=== PATIENT | female | born 1975 | race Caucasian/White ===

== ENCOUNTER 2019-09-10 14:35 | Outpatient (CLI) | payer OTHER, SELFPAY ==
--- NOTE | ~2019-09-10 | MM_ITS ---
EXAMINATION: MM screening [facility] BI w rekha HISTORY: Screening mammogram TECHNIQUE: Craniocaudal and mediolateral oblique 3-D tomosynthesis images were obtained and synthetic 2-D images were generated. CAD analysis was submitted and interpreted. COMPARISON: None, baseline BREAST PARENCHYMAL COMPOSITION: The breasts are heterogeneously dense, which may obscure small masses . FINDINGS: RIGHT BREAST: There is no evidence of suspicious mass, calcification, or architectural distortion to suggest malignancy. LEFT BREAST: There is a mass in the posterior third of the upper outer breast best appreciated 6.1 cm from the nipple on mediolateral oblique tomosynthesis image 12/59. In addition, there is an asymmetr y in the upper outer quadrant of the breast 6 cm from the nipple on mediolateral oblique tomosynthesi s image 20/59. IMPRESSION: 1. Findings in the upper outer quadrant of the left breast which may reflect intramammary lymph nodes . 2. Additional mammographic views and possible breast ultrasound are recommended to evaluate for malig jarod and establish a baseline given that this is the first mammographic examination. BI-RADS Category 0: Incomplete: Needs additional imaging evaluation. Reviewed, dictated and finalized at location A. 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 Findings in the upper outer quadrant of the left breast which may reflect in tramammary lymph nodes. 2. Additional mammographic views and possible breast ultrasound are recommended to evaluate for malignancy and establish a baseline given that this is the fir st mammographic examination. BI-RADS Category 0: Incomplete: Needs additional imaging evaluation.
== END 2019-09-10 14:36 | disposition home or self-care (01) ==
PROVIDERS: PCP Family Medicine; Visit Provider Family Medicine
DX: Z12.31 Encounter for screening mammogram for malignant neoplasm of breast (principal)
CPT/HCPCS: 77063; 77067

== ENCOUNTER 2020-07-15 11:29 | Outpatient (NON) | payer OTHER, SELFPAY ==
[2020-07-15 23:21] LABS: SARS-CoV-2 RNA PCR Positive
== END 2020-07-15 11:30 ==
PROVIDERS: Visit Provider Family Medicine
DX: U07.1 COVID-19 (principal); B34.9 Viral infection, unspecified
CPT/HCPCS: 87635; C9803; U0003

== ENCOUNTER 2020-07-20 15:17 | Emergency (ER) | payer OTHER, SELFPAY ==
--- NOTE | ~2020-07-20 | XR_ITS ---
XR chest 1V portable DATE: 07/20/2020 16:09 INDICATION: Covid-positive for 4 to 5 days TECHNIQUE: Portable upright AP chest on 07/20/2020 at 1555 hours COMPARISON: None FINDINGS: Normal heart size. No hilar or mediastinal enlargement. No pulmonary infiltrate or consolid ation, pleural effusion or pulmonary vascular congestion or pneumothorax. IMPRESSION: No active cardiopulmonary disease Reviewed, dictated and finalized at location B. AL WORK PROFESSOR
--- NOTE | ~2020-07-20 | CT_ITS ---
EXAMINATION: CTA chest PE protocol EXAM DATE: 07/20/2020 19:08 INDICATION: Shortness of breath. COVID 19 positive. TECHNIQUE: Spiral CTA of the chest (pulmonary arteries) was performed with 100 cc Omnipaque 350 intr avenous contrast injection. Images were acquired during the pulmonary arterial phase. Coronal maxi mum intensity projection 3D-reconstructions were created by the technologist on dedicated workstation . Axial, coronal and sagittal reformatted images were reviewed. The dose-length product (DLP) for t his examination was 153.39 mGy-cm. The exposure was tailored according to patient size (auto mA exp osure control), and iterative reconstruction (ASIR) was used as additional dose reduction technique. There is no prior study for comparison. FINDINGS: Pulmonary arteries are well opacified and without intraluminal filling defects. No thora cic aortic dissection. There are several small regions of peripheral groundglass opacity within the lungs bilaterally. Distribution and appearance is consistent with COVID-19 pneumonia. There is more c onfluent oblong opacity in the left upper lobe medially measuring 1.1 x 2.9 cm probably atelectasis b ut a follow-up CT is recommended in 1 month to exclude possibility of cancer. Small amount of depende nt atelectasis. There are no pleural or pericardial effusions. Tracheobronchial tree is patent. There is no mediastinal, hilar or axillary lymphadenopathy. There is no pneumothorax. Heart chichi l in size. No evidence of coronary arterial calcification. Upper abdomen is unremarkable. The raymond warren are unremarkable. IMPRESSION: 1. Several small peripheral groundglass opacities in both lungs consistent with COVID pneumonia. 2. Surrency paramedial left upper lobe opacity probably atelectasis but follow-up CT recommended in 1 month to exclude chronic process such as cancer. 3. No pulmonary emboli. Reviewed, dictated and finalized at location A. MAKER IMPRESSION: 1. Several small peripheral groundglass opacities in both lungs consistent wit h COVID pneumonia. 2. Surrency paramedial left upper lobe opacity probably atelectasis but follow-u p CT recommended in 1 month to exclude chronic process such as cancer. 3. No pulmonary emboli.
--- NOTE | 2020-07-20 15:31 | ECG_ITS ---
Measurements Intervals [place] Rate: 77 P: 62 CA: 121 QRS: 50 QRSD: 89 T: 62 QT: 361 QTc: 409 Interpretive Statements SINUS RHYTHM INCOMPLETE RIGHT BUNDLE BRANCH BLOCK LOW QRS VOLTAGE IN PRECORDIAL LEADS ST ELEVATION IN ANT/INF LEADS- PROBABLY EARLY REPOLARIZATION BASELINE WANDER- I, II, AVR, AVL, AVF, V1-V3 BORDERLINE ECG Electronically Signed On 07-20-2020 17:41:13 ATOMIZER ASSEMBLER by Rex Lomax D.O.
[2020-07-20 15:32] VITALS: BP 136/93; PULSE 83; RESP 22; TEMP 36.6; O2SAT 100
--- NOTE | 2020-07-20 15:55 | ED.SOB ---
HPI - SOB/Dyspnea General Chief Complaint: Shortness of Breath/Dyspnea Stated Complaint: covid postive/sob Time Seen by Provider: 07/20/20 15:42 Source: patient, RN notes reviewed and old records reviewed Limitations: no limitations History of Present Illness HPI Narrative: 45-year-old female presents to emergency department for shortness of breath for over 1 week, progressively worsening. Patient was diagnosed with COVID-19 recently. She states she has been feeling bad since last Saturday. She reports fatigue/weakness, a runny/congested nose, and shortness of breath. She states her shortness of breath has worsened recently. She also lost her sense of taste and smell over the weekend. Related Data Allergies Allergy/AdvReac Type Severity Reaction Status Date / Time No Known Allergies Allergy Verified 07/20/20 18:44 Review of Systems Review of Systems: Narrative: CONSTITUTIONAL: Denies fever, chills, or sweats. EYES: Denies visual changes, redness, or discharge. ENT: Denies rhinorrhea, congestion, sore throat, or otalgia. CARDIOVASCULAR: Denies chest pain, palpitations, or edema. RESPIRATORY: Denies cough or dyspnea. GASTROINTESTINAL: Denies abdominal pain, nausea, vomiting, or diarrhea. GENITOURINARY: Denies dysuria or hematuria. SKIN: Denies rash or itching. MUSCULOSKELETAL: Denies back pain, joint pain, or myalgia. NEUROLOGIC: Denies headache, numbness, dizziness, or weakness. PSYCHIATRIC: Denies anxiety or depression. All systems reviewed & are unremarkable except as noted in HPI and below (ROS) PMFSH Social History Social History Gender identity (if verbalized by the patient): Female Exam Narrative: Exam Narrative: GENERAL: Well-appearing, well-nourished, and in no acute distress. HEAD: Normocephalic, atraumatic. EYES: PERRLA and EOMI. ENT: Nares clear, no rhinorrhea or epistaxis. Mucous membranes moist. NECK: Supple. CHEST: Clear to auscultation. No respiratory distress. HEART: Regular rate and rhythm. No murmur heard. Normal peripheral pulses. ABDOMEN: Soft, nontender, nondistended, normal active bowel sounds. EXTREMITIES: Normal range of motion. No edema. SKIN: Warm, dry, no rash. NEURO: No focal deficits. Alert and oriented x3. PSYCH: Normal mood and affect. Course Reevaluation(s) Reevaluation #1: 1999 -reevaluated patient no new complaints. CT scan showed no pulmonary embolism. Patient has stable vitals, 100% oxygen on room air. Counseled patient to return to emergency department if she notices increased shortness of breath difficulty breathing, or other concerns. Counseled patient to follow-up with her medical provider within 1 week Vital Signs Vital signs: Vital Signs Temperature 36.6 C 07/20/20 15:32 Pulse Rate 83 07/20/20 15:32 Respiratory Rate 22 H 07/20/20 15:32 Blood Pressure 136/93 H 07/20/20 15:32 Pulse Oximetry 100 07/20/20 15:32 Temperature 36.7 C 07/20/20 20:15 Pulse Rate 79 07/20/20 20:15 Respiratory Rate 16 07/20/20 20:15 Blood Pressure 128/86 07/20/20 20:15 Pulse Oximetry 100 07/20/20 20:15 MDM - SOB/Dyspnea Medical Records Attestation: I reviewed the patient's medical records. Lab Data Attestation: I reviewed the patient's lab results. Result diagrams: 07/20/20 15:53 07/20/20 15:53 Labs: Lab Results 07/20/20 07/20/20 Range/Units 15:53 15:53 WBC 6.1 (4.5-10.0) K/mm3 RBC 4.12 L (4.2-5.4) M/mm3 Hgb 14.5 (12.0-15.0) g/dL Hct 40.0 (37.0-47.0) % MCV 97.1 (80-100) fl MCH 35.2 H (26-34) pg MCHC 36.3 H (32-36) g/dl RDW 11.0 L (11.5-14.5) % Plt Count 246 (150-375) k/mm3 MPV 9.3 (7.4-10.4) fl Immature Gran % (Auto) 0.2 (0-0.5) % Neut % (Auto) 49.1 (45.5-73.1) % Lymph % (Auto) 38.7 (18.3-44.2) % [place] % (Auto) 10.6 H (2.6-8.5) % Eos % (Auto) 0.7 (0-4.4) % Baso % (Auto) 0.7 (0.2-1.2) % Lymph # (Auto
[2020-07-20 15:59] LABS: Basophils Percent Auto 0.7 % (0.2-1.2); Eosinophils Percent Auto 0.7 % (0-4.4); Hemoglobin 14.5 g/dL (12.0-15.0); Immature Granulocyte Absolute 0.01 K/mm3 (0.00-0.031); Immature Granulocyte Percent A 0.2 % (0-0.5); Lymphocytes Absolute Auto 2.37 K/mm3 (0.9-3.2); Lymphocytes Percent Auto 38.7 % (18.3-44.2); Mean Corpuscular HGB Conc 36.3 g/dl (32-36); Mean Corpuscular Hemoglobin 35.2 pg (26-34); Mean Corpuscular Volume 97.1 fl (80-100); Mean Platelet Volume 9.3 fl (7.4-10.4); Monocytes Absolute Auto 0.7 K/mm3 (0.1-0.6); Monocytes Percent Auto 10.6 % (2.6-8.5); Neutrophils Percent Auto 49.1 % (45.5-73.1); Platelet Count Result 246 k/mm3 (150-375); Red Blood Count 4.12 M/mm3 (4.2-5.4); White Blood Count 6.1 K/mm3 (4.5-10.0)
[2020-07-20] MEDS: ALBUTEROL SULFATE (*SP) AEROSOL 1 PUFF 4 PUFF INHALATION (16:07)
[2020-07-20 16:11] LABS: Anion Gap 8 mmol/L (8-16); Blood Urea Nitrogen 10 mg/dL (7-17); Calcium 9.3 mg/dL (8.4-10.2); Carbon Dioxide 25 mmol/L (22-30); Chloride 103 mmol/L (98-107); Estimated CRCL calculation 84 ml/min; Estimated Glomerular Filt Rate > 60; Glucose 91 mg/dL (65-105); Potassium 3.7 mmol/L (3.4-5.0); Sodium 136 mmol/L (137-145)
[2020-07-20 16:30] VITALS: PULSE 72
[2020-07-20] MEDS: KETOROLAC 15 MG/ML VIAL (*BKC) IV PUSH ×2 (16:35→18:53)
[2020-07-20 19:48] VITALS: BP 144/97; PULSE 74; RESP 16; O2SAT 100
[2020-07-20 20:15] VITALS: BP 128/86; PULSE 79; RESP 16; TEMP 36.7; O2SAT 100
== END 2020-07-20 20:16 | disposition home or self-care (01) ==
PROVIDERS: Emergency Medicine; Emergency Provider Emergency Medicine; PCP Family Medicine
DX: U07.1 COVID-19 (principal); J12.89 Other viral pneumonia
CPT/HCPCS: 36415; 71045; 71275; 80048; 85025; 93005; 96374; 96376; 99284; A9270; J1885; Q9967

== ENCOUNTER 2021-05-30 04:57 | Emergency (ER) | payer OTHER, SELFPAY ==
--- NOTE | ~2021-05-30 | XR_ITS ---
EXAMINATION: XR shoulder LT min 2V INDICATION: Left shoulder pain TECHNIQUE: Four views of the left shoulder are submitted. COMPARISON: 07/20/2020 FINDINGS: Normal alignment. No fracture. Glenohumeral and acromioclavicular joint spaces are normal. Soft tissues are unremarkable. IMPRESSION: 1. No acute osseous abnormality. Reviewed, dictated and finalized at location A.
--- NOTE | ~2021-05-30 | XR_ITS ---
EXAMINATION:XR_[id number]_CR DATE: 05/30/2021 05:48 INDICATION: Neck pain TECHNIQUE: AP, lateral, lateral swimmers and odontoid views of the cervical spine are provided. COMPARISON: None FINDINGS: Alignment is normal. The odontoid is intact. No fracture is identified. The vertebral body heights are normal. There is mild loss of intervertebral disc space height at C5-6, C6-C7, and C7-T1. Small degenerative osteophytes project from the anterior endplates of multiple vertebral bodies. The re is moderate multilevel facet and uncovertebral joint osteoarthritis. Prevertebral soft tissues are normal. IMPRESSION: 1. Mild to moderate cervical spondylosis without acute findings. Reviewed, dictated and finalized at location A.
[2021-05-30 05:01] VITALS: BP 147/112; PULSE 97; RESP 18; TEMP 37.5; O2SAT 100
[2021-05-30 05:15] VITALS: BP 146/110
--- NOTE | 2021-05-30 05:19 | ED.GENADULT ---
HPI - General Adult General Chief complaint: Unspecified Stated complaint: Neck and Headpain Time Seen by Provider: 05/30/21 05:11 History of Present Illness HPI narrative: Patient 46-year-old female presents to emergency department with chief complaint of left shoulder and neck pain. The patient reports that she has been having some problems with her left shoulder but had a easy relaxing day and suddenly this evening started having severe pain in her low neck and shoulder the patient reports her spasm component to it reports it is worse with movement and improved with rest patient denies numbness or tingling denies chest pain denies focal neurological deficit Related Data Allergies Allergy/AdvReac Type Severity Reaction Status Date / Time No Known Allergies Allergy Verified 05/30/21 05:04 Review of Systems Review of Systems: A 10 system review of systems was completed on the patient and is negative except for what is stated in the HPI. Nursing and ancillary documentation was reviewed. [facility] Social History Social History Gender identity (if verbalized by the patient): Female Exam Narrative: GENERAL: Well-appearing, well-nourished, and in no acute distress. HEAD: Normocephalic, atraumatic. EYES: PERRLA and EOMI. ENT: Nares clear, no rhinorrhea or epistaxis. Mucous membranes moist. NECK: Supple. There is spasm present on the lateral's paraspinous muscles of the left side of the neck CHEST: Clear to auscultation. No respiratory distress. HEART: Regular rate and rhythm. No murmur heard. Normal peripheral pulses. ABDOMEN: Soft, nontender, nondistended, normal active bowel sounds. EXTREMITIES: Normal range of motion. No edema. There is tenderness to palpation in the right shoulder area there is no deformity SKIN: Warm, dry, no rash. NEURO: No focal deficits. Alert and oriented x3. PSYCH: Normal mood and affect. Course Vital Signs Vital signs: Vital Signs Temperature 37.5 C 05/30/21 05:01 Pulse Rate 97 05/30/21 05:01 Respiratory Rate 18 05/30/21 05:01 Blood Pressure 147/112 H 05/30/21 05:01 Pulse Oximetry 100 05/30/21 05:01 Temperature 37.5 C 05/30/21 05:01 Pulse Rate 97 05/30/21 05:01 Respiratory Rate 18 05/30/21 05:01 Blood Pressure 146/110 H 05/30/21 05:15 Pulse Oximetry 100 05/30/21 05:01 Medical Decision Making Vital Signs Vital Signs: Vital Signs Temperature 37.5 C 05/30/21 05:01 Pulse Rate 97 05/30/21 05:01 Respiratory Rate 18 05/30/21 05:01 Blood Pressure 147/112 H 05/30/21 05:01 Pulse Oximetry 100 05/30/21 05:01 Temperature 37.5 C 05/30/21 05:01 Pulse Rate 97 05/30/21 05:01 Respiratory Rate 18 05/30/21 05:01 Blood Pressure 146/110 H 05/30/21 05:15 Pulse Oximetry 100 05/30/21 05:01 Discharge Plan Discharge Clinical Impression: Acute cervical myofascial strain Qualifiers: Encounter type: initial encounter Qualified Code(s): S16.1XXA - Strain of muscle, fascia and tendon at neck level, initial encounter Left shoulder strain Qualifiers: Encounter type: initial encounter Qualified Code(s): S46.912A - Strain of unspecified muscle, fascia and tendon at shoulder and upper arm level, left arm, initial encounter Patient Disposition: Home, Self-Care Condition: Stable Instructions: Antibiotic Form, Shoulder Pain (ED), Acute Neck Pain (ED) Prescriptions: New orphenadrine citrate 100 mg tablet extended release 100 mg PO Q12H Qty: 30 RF: 0 hydrocodone-acetaminophen 5-325 mg tablet 1 tablet PO Q4H PRN (Reason: pain) 3 Days Qty: 12 RF: 0 Follow-up/Referrals: Desiree,Bonifacio Guzmán MD [Primary Care Provider] - Time of Disposition: 06:07
[2021-05-30] MEDS: HYDROmorphone HCL INJ (*CRX) 1 MG/ML SYR IV PUSH (05:22)
[2021-05-30] MEDS: LORazepam INJ (*CRX) 2 MG/ML VIAL 0.5 MG IV PUSH (05:22)
[2021-05-30] MEDS: KETOROLAC 30 MG/ML VIAL (*BKC) IV PUSH (05:23)
[2021-05-30 06:23] VITALS: BP 116/85; PULSE 84; RESP 16; TEMP 37.2; O2SAT 99
== END 2021-05-30 06:23 | disposition home or self-care (01) ==
PROVIDERS: Emergency Provider Emergency Medicine; PCP Family Medicine
DX: S16.1XXA Strain of muscle, fascia and tendon at neck level, initial encounter (principal); S46.912A Strain of unspecified muscle, fascia and tendon at shoulder and upper arm level, left arm, initial encounter; X58.XXXA Exposure to other specified factors, initial encounter
CPT/HCPCS: 72040; 73030; 96374; 96375; 99284; J1170; J1885; J2060

== ENCOUNTER 2021-09-13 15:59 | Outpatient (CLI) | payer OTHER, SELFPAY ==
--- NOTE | ~2021-09-13 | MM_ITS ---
EXAMINATION: MM screening [facility] BI w rekha HISTORY: Screening mammogram TECHNIQUE: Craniocaudal and mediolateral oblique 3-D tomosynthesis images were obtained and synthetic 2-D images were generated. CAD analysis was submitted and interpreted. COMPARISON: 09/10/2019, 10/12/2016, 10/09/2016 BREAST PARENCHYMAL COMPOSITION: The breasts are heterogeneously dense, which may obscure small masses . FINDINGS: There is no evidence of suspicious mass, calcification, or architectural distortion to sugg est malignancy in either breast. There has been no suspicious interval change. IMPRESSION: 1. No mammographic evidence of malignancy. 2. Recommend routine screening mammography in one year. BI-RADS Category 1: Negative Reviewed, dictated and finalized at location A. LE AND BUTTON MAKER
== END 2021-09-13 16:00 | disposition home or self-care (01) ==
LOC: ANHIMG 16:03
PROVIDERS: PCP Family Medicine
DX: Z12.31 Encounter for screening mammogram for malignant neoplasm of breast (principal)
CPT/HCPCS: 77063; 77067